=== PATIENT | male | born 1990 | race Two or more races ===

== ENCOUNTER 2022-02-02 15:30 | Emergency (ER) | payer MEDICAID ==
[~2022-02-02] VITALS: Ht 167.6 cm; Wt 90.9 kg
[2022-02-02 18:54] LABS: BASOPHILS % (AUTO) 0.6 % (0-1); EOSINOPHILS # (AUTO) 0.1 X10'3 (0-0.9); EOSINOPHILS % (AUTO) 2.4 % (0-6); HEMATOCRIT 52.3 % (42.0-52.0); LYMPHOCYTES # (AUTO) 1.4 X10'3 (1.1-4.8); MEAN CORPUSCULAR HEMOGLOBIN 33.5 PG (27.0-31.0); MEAN CORPUSCULAR HGB CONC 34.6 g/dL (33.0-36.5); MEAN CORPUSCULAR VOLUME 96.6 FL (78-98); MEAN PLATELET VOLUME 7.6 FL (7.4-10.4); MONOCYTES # (AUTO) 0.7 X10'3 (0-0.9); MONOCYTES % (AUTO) 11.6 % (2-12); NEUTROPHILS # (AUTO) 3.8 X10'3 (1.8-7.7); NEUTROPHILS % (AUTO) 62.4 % (42-75); PLATELET COUNT 141 X10'3 (140-440); RED BLOOD COUNT 5.42 X10'6 (4.70-6.10); RED CELL DISTRIBUTION WIDTH 13.2 % (11.5-14.5)
[2022-02-02 19:04] LABS: ALANINE AMINOTRANSFERASE 84 U/L (12-78); ALBUMIN/GLOBULIN RATIO 0.8 (1.1-1.5); ALKALINE PHOSPHATASE 106 IU/L (46-116); ANION GAP 10 (8-16); ASPARTATE AMINO TRANSFERASE 104 U/L (10-37); BILIRUBIN,TOTAL 2.7 MG/DL (0.1-1.0); BLOOD UREA NITROGEN 6 MG/DL (7-18); BUN/CREATININE RATIO 9.4 (5.4-32.0); CHLORIDE 100 MMOL/L (99-107); CREATININE 0.64 MG/DL (0.60-1.10); GLUCOSE 91 MG/DL (70-104); POTASSIUM 4.2 MMOL/L (3.5-5.1); SODIUM 138 MMOL/L (135-145); TOTAL CARBON DIOXIDE 27.6 MMOL/L (24-32); TOTAL PROTEIN 8.8 G/DL (6.4-8.2); eGFR > 90 ML/MIN
[2022-02-02 19:11] LABS: HEMOGLOBIN 18.1 g/dl (14.0-17.9)
[2022-02-02] MEDS ORDERED: midazolam 1 mg/ML 2ml injection IV ONE (20:55)
[2022-02-02] MEDS ORDERED: normal saline 1000ml 1,000 ML IV ONE (20:55)
[2022-02-02] MEDS ORDERED: iohexol 350MG/ML 100ml bottle IV ONE (20:55)
[2022-02-02] MEDS ORDERED: AMLO5TAB PO (22:15)
[2022-02-02 22:24] VITALS: BP 162/103
== END 2022-02-02 22:27 | disposition home or self-care (01) ==
LOC: ER 15:31
DX: R07.89 Other chest pain (principal); R25.1 Tremor, unspecified; R42 Dizziness and giddiness; R51.9 Headache, unspecified
CPT/HCPCS: 36415; 71045; 71275; 80053; 84439; 84443; 84484; 85025; 93005; 96361; 96374; 99285; J2250; J3490; J7030; Q9967

== ENCOUNTER 2023-09-19 19:48 | Emergency (ER) | payer MEDICAID ==
[~2023-09-19] VITALS: Ht 167.6 cm; Wt 97.7 kg
[~2023-09-19 19:48] MED LIST: AMLO5TAB PO
[2023-09-19 20:13] LABS: EOSINOPHILS # (AUTO) 0.5 X10'3 (0-0.9); MONOCYTES # (AUTO) 0.7 X10'3 (0-0.9); NEUTROPHILS % (AUTO) 52.1 % (42-75)
[2023-09-19 20:15] LABS: BASOPHILS # (AUTO) 0.1 X10'3 (0-0.2); EOSINOPHILS % (AUTO) 7.5 % (0-6); LYMPHOCYTES % (AUTO) 29.6 % (21-51); MEAN PLATELET VOLUME 7.5 FL (7.4-10.4); MONOCYTES % (AUTO) 9.8 % (2-12); NEUTROPHILS # (AUTO) 3.6 X10'3 (1.8-7.7); PLATELET COUNT 175 X10'3 (140-440); WHITE BLOOD COUNT 6.8 X10'3 (4.5-11.0)
[2023-09-19 20:22] LABS: ALANINE AMINOTRANSFERASE 54 U/L (12-78); ALBUMIN/GLOBULIN RATIO 0.6 (1.1-1.5); ALKALINE PHOSPHATASE 164 IU/L (46-116); ANION GAP 9 (8-16); ASPARTATE AMINO TRANSFERASE 58 U/L (10-37); BILIRUBIN,TOTAL 0.8 MG/DL (0.1-1.0); BLOOD UREA NITROGEN 6 MG/DL (7-18); BUN/CREATININE RATIO 8.5 (10.0-20.0); CALCIUM 8.3 MG/DL (8.5-10.1); CHLORIDE 99 MMOL/L (99-107); CREATININE 0.71 MG/DL (0.60-1.10); GLUCOSE 137 MG/DL (70-104); SODIUM 137 MMOL/L (135-145); TOTAL CARBON DIOXIDE 28.6 MMOL/L (24-32); TOTAL PROTEIN 8.4 G/DL (6.4-8.2); eCRCL 131 ML/MIN; eGFR > 90 ML/MIN
[2023-09-19 20:24] LABS: POTASSIUM 3.7 MMOL/L (3.5-5.1)
[2023-09-19 20:43] LABS: MEAN CORPUSCULAR HEMOGLOBIN 32.4 PG (27.0-31.0); MEAN CORPUSCULAR HGB CONC 34.7 g/dL (33.0-36.5); MEAN CORPUSCULAR VOLUME 93.3 FL (78-98); RED BLOOD COUNT 5.57 X10'6 (4.70-6.10); RED CELL DISTRIBUTION WIDTH 13.6 % (11.5-14.5)
[2023-09-19 20:58] LABS: PRO BRAIN NATRIURETIC PEPTIDE 86 PG/ML (0-125)
[2023-09-19] MEDS: ipratropium/albuterol 3ml nebule NEB ONE (22:20)
[2023-09-19] MEDS: normal saline 1000ML IV soln IVB ONE (22:38)
[2023-09-19] MEDS: azithromycin/NS 500mg/250ml 250 ML IV ONE (22:41)
[2023-09-19] MEDS: methylPREDNISolone sod succ 125mg/2ml vial IV ONE (22:42)
[2023-09-19 23:41] VITALS: PULSE 98; RESP 18; O2SAT 94
[2023-09-19 23:47] VITALS: PULSE 95; RESP 16; O2SAT 97
[2023-09-20] MEDS: albuterol 2.5 MG/3 ML nebule NEB ONE (01:09)
[2023-09-20 01:10] VITALS: PULSE 99; RESP 16; O2SAT 93
[2023-09-20 01:18] VITALS: PULSE 96; RESP 16; O2SAT 97
[2023-09-20] MEDS ORDERED: PRED50TA PO (01:34)
[2023-09-20] MEDS ORDERED: ALBU90AE INH (01:34)
[2023-09-20] MEDS ORDERED: AZIT500T9 PO (01:34)
[2023-09-20 02:00] VITALS: BP 180/114; PULSE 97; RESP 19; TEMP 97; O2SAT 93
== END 2023-09-20 02:05 | disposition home or self-care (01) ==
LOC: ER 19:48
DX: J06.9 Acute upper respiratory infection, unspecified (principal); J45.909 Unspecified asthma, uncomplicated; I10 Essential (primary) hypertension; F17.200 Nicotine dependence, unspecified, uncomplicated; Z20.822 Contact with and (suspected) exposure to COVID-19
CPT/HCPCS: 36415; 71045; 80053; 83880; 84484; 85025; 87502; 87503; 87811; 93005; 94640; 96365; 96375; 99285; J0456; J2930; J7030

== ENCOUNTER 2023-09-22 00:43 | Emergency (ER) | payer MEDICAID ==
[~2023-09-22] VITALS: Ht 167.6 cm; Wt 115.6 kg
[~2023-09-22 00:43] MED LIST changes: +ALBU90AE INH; +AZIT500T9 PO; +PRED50TA PO
[2023-09-22] MEDS: ipratropium/albuterol 3ml nebule NEB STA (01:18)
[2023-09-22 01:19] VITALS: PULSE 118; RESP 22; O2SAT 93
[2023-09-22 01:24] VITALS: PULSE 117; RESP 22; O2SAT 93
[2023-09-22 01:38] LABS: BASOPHILS % (AUTO) 0.2 % (0-1); EOSINOPHILS % (AUTO) 0.2 % (0-6); MEAN PLATELET VOLUME 7.5 FL (7.4-10.4); WHITE BLOOD COUNT 8.8 X10'3 (4.5-11.0)
[2023-09-22 01:39] LABS: LYMPHOCYTES # (AUTO) 2.8 X10'3 (1.1-4.8); LYMPHOCYTES % (AUTO) 32.2 % (21-51); MONOCYTES # (AUTO) 0.7 X10'3 (0-0.9); MONOCYTES % (AUTO) 8.4 % (2-12); NEUTROPHILS # (AUTO) 5.2 X10'3 (1.8-7.7); PLATELET COUNT 191 X10'3 (140-440)
[2023-09-22 01:45] LABS: ALANINE AMINOTRANSFERASE 41 U/L (12-78); ALBUMIN 3.1 G/DL (3.4-5.0); ALBUMIN/GLOBULIN RATIO 0.6 (1.1-1.5); ALKALINE PHOSPHATASE 148 IU/L (46-116); ANION GAP 14 (8-16); ASPARTATE AMINO TRANSFERASE 34 U/L (10-37); BILIRUBIN,TOTAL 0.4 MG/DL (0.1-1.0); BLOOD UREA NITROGEN 9 MG/DL (7-18); BUN/CREATININE RATIO 11.5 (10.0-20.0); CALCIUM 8.1 MG/DL (8.5-10.1); CHLORIDE 98 MMOL/L (99-107); CREATININE 0.78 MG/DL (0.60-1.10); GLUCOSE 110 MG/DL (70-104); POTASSIUM 3.1 MMOL/L (3.5-5.1); SODIUM 135 MMOL/L (135-145); TOTAL CARBON DIOXIDE 22.9 MMOL/L (24-32); TOTAL PROTEIN 8.1 G/DL (6.4-8.2); eCRCL 119 ML/MIN; eGFR > 90 ML/MIN
[2023-09-22] MEDS: dexamethasone sod phosphate 10mg/ml inj IM STA (01:47)
[2023-09-22 01:53] LABS: PRO BRAIN NATRIURETIC PEPTIDE 39 PG/ML (0-125)
[2023-09-22 02:36] LABS: HEMOGLOBIN 16.3 g/dl (14.0-17.9); RED BLOOD COUNT 5.26 X10'6 (4.70-6.10)
[2023-09-22 02:37] LABS: HEMATOCRIT 48.8 % (42.0-52.0); MEAN CORPUSCULAR HEMOGLOBIN 30.9 PG (27.0-31.0); MEAN CORPUSCULAR HGB CONC 33.3 g/dL (33.0-36.5); MEAN CORPUSCULAR VOLUME 92.3 FL (78-98); RED CELL DISTRIBUTION WIDTH 14.4 % (11.5-14.5)
[2023-09-22] MEDS: albuterol 2.5 MG/3 ML nebule CONTNEB PRN (02:45)
[2023-09-22] MEDS: ipratropium 0.5 MG/2.5ML nebule IH ONE (02:45)
[2023-09-22 02:49] VITALS: PULSE 107; RESP 18; O2SAT 95
[2023-09-22] MEDS: magnesium 2GM in 50ml NS 50 ML IV ONE (02:51)
[2023-09-22] MEDS: normal saline 1000ML IV soln IVB ONE (02:54)
[2023-09-22 02:57] LABS: D-DIMER 0.35 MG/L FEU (0-0.50)
[2023-09-22 02:58] LABS: BILIRUBIN,URINE NEGATIVE (Neg); CLARITY,URINE CLEAR (Clear); COLOR,URINE YELLOW (Yellow); GLUCOSE, URINE NEGATIVE (Neg); KETONES,URINE NEGATIVE (Neg); LEUKOCYTE ESTERASE ,URINE NEGATIVE (Neg); NITRITES, URINE NEGATIVE (Neg); OCCULT BLOOD,URINE NEGATIVE (Neg); PH,URINE 5.5 (4.8-8.0); PROTEIN,URINE NEGATIVE (Neg); UROBILINOGEN,URINE 0.2 E.U/dL (0.2-1.0)
[2023-09-22 03:02] LABS: UA COLLECTION TYPE CLN CATCH MIDSTREAM
[2023-09-22] MEDS: potassium Cl 20 mEq SR tablet PO STA (04:34)
[2023-09-22 05:04] VITALS: BP 123/85; PULSE 113; RESP 18; TEMP 98.5; O2SAT 100
== END 2023-09-22 05:06 | disposition home or self-care (01) ==
LOC: ER 00:44
DX: J45.901 Unspecified asthma with (acute) exacerbation (principal); R05.9 Cough, unspecified; I10 Essential (primary) hypertension; F17.200 Nicotine dependence, unspecified, uncomplicated; Z79.899 Other long term (current) drug therapy
CPT/HCPCS: 36415; 71045; 80053; 81003; 83605; 83880; 84145; 84484; 85025; 85379; 87040; 93005; 94644; 94760; 96365; 96372; 99285; J1100; J3475; J7030; 94640; A7015